=== PATIENT | male | born 1960 | race Caucasian/White ===

== ENCOUNTER 2019-01-30 07:58 | Day surgery (SDC) | payer OTHER ==
--- OUTSIDE RECORDS SUMMARY | 2019-01-30 08:02 | XMS REPORT ---
:1960 [facility] Address [address] [place] [address] [address] [place] [address] Care Team Providers Name Role Phone Unavailable Unavailable Unavailable Problems This patient has no known problems. Allergies, Adverse Reactions, Alerts This patient has no known allergies or adverse reactions. Medications This patient has no known medications.
[2019-01-30] MEDS ORDERED: Ringers Lactate 1,000 ML IV ONE (08:25)
[2019-01-30] MEDS ORDERED: CEFAZOLIN/SWI 1gm 1 GM/10 ML SYR ONE (08:26)
[2019-01-30 08:39] LABS: Absolute Lymphocytes (CBC) 1.2 K/uL (0.7-4.9); Basophils % 0.7 % (0-1.3); Lymphocytes % 9.2 % (15.3-44.8)
[2019-01-30 08:45] LABS: BUN Blood Urea Nitrogen 6 mg/dL (7-18); Bicarbonate 28 mmol/L (21-32); Glucose Level 102 mg/dL (74-106); Sodium Level 136 mmol/L (136-145)
--- NOTE | 2019-01-30 09:09 | RAD REPORT ---
EXAM DESCRIPTION: RAD - Chest Pa And Lat (2 Views) - 01/30/2019 8:27 am CLINICAL HISTORY: Preop chest, pending endoscopy and rectal abscess drainage COMPARISON: None. TECHNIQUE: PA and lateral views of the chest were obtained. FINDINGS: The lungs are hyperexpanded with flattened diaphragm and increased retrosternal space. A 1 0-12 mm nodule is present in the upper right lung field as well as focal parenchymal stranding. A lar yonathan area of irregular density and stranding seen in the left midlung field. By available history, the patient has no acute respiratory symptoms. In the absence of a prior study, the current chest findin gs could be chronic focal scarring changes or mass lesions. Bilateral apical scarring changes are pr esent. Focal stranding is seen in the lateral right upper lung field abutting the pleura. Heart size is normal and central vasculature is within normal limits. No pleural effusion or pneumo thorax seen. No acute bony finding noted. No aortic abnormality. Findings discussed with the referring physician 9:03 a.m. 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 Focal irregular parenchymal opacities in the upper right lung field and mid left lung field could be scarring or mass. Malignancy cannot be excluded. If the patient has no old outside imaging that can establish long-term stability of these findings, f ollow-up CT chest imaging would be recommended.
[2019-01-30] MEDS ORDERED: PROPOFOL 200 MG/20 ML VIAL IV ONE (09:16)
[2019-01-30] MEDS ORDERED: MIDAZOLAM HCL 2 MG/2 ML INJ ONE (09:17)
[2019-01-30] MEDS ORDERED: FENTANYL CITR 100 MCG/2 ML ONE ×2 (09:17→09:53)
[2019-01-30] MEDS ORDERED: LIDOCAINE 1% MPF 2 ML AMPULE ONE (09:18)
[2019-01-30] MEDS: HYDROMORPHONE HCL 1 MG/ML INJ ONE ×4 (10:34→10:55)
--- NOTE | 2019-01-30 11:35 | EKG ---
Test Date: 2019-01-30 Test Time: 08:16:23 Patch Setter: RUSSELL MEASUREMENT RESULTS: Intervals: Rate: 78 OH: 130 QRSD: 86 QT: 376 QTc: 428 [place]: P: 85 OH: 130 QRS: 88 T: 86 INTERPRETIVE STATEMENTS: Normal sinus rhythm Normal ECG No previous ECG available for comparison Electronically Signed On 01-30-19 11:34:22 CDT by Chris Lopez
--- NOTE | 2019-01-30 22:47 | OP ---
Date of Procedure: 01/30/2019 Surgeon: Kurt Díaz MD Preoperative Diagnosis: Right perirectal abscess. 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 Procedure Performed: Exam under anesthesia, rigid proctoscopy, incision and drainage and debridement of right perirectal abscess. Estimated Blood Loss: Minimal. Specimens: Pus. Finding: As above. Anesthesia: General. Complications: None. Disposition: Patient tolerated the procedure in stable condition, taken to Recovery in good general condition. Procedure In Detail: The patient was brought to the OR and placed in supine position. General anest hesia was begun. The patient was prepped and draped in usual sterile fashion in the lithotomy positi on. Exam under anesthesia revealed pus oozing from the inguinal canal and then and rigid proctoscopy confirmed in the posterior midline, there was a small opening, but there was very high fistula. On the right side of the anus, there was a large fluctuant mass. 4 cm incision was made. The pus under pressure evacuated. Loculation was broken up. Wound irrigated. Bleeding controlled with cautery. As this is a very high fistula, I decided to leave it alone. We will treat the abscess first and liset thomas can follow up with a colorectal surgeon as an outpatient. Subsequently, wet-to-dry normal sali ne dressing change was applied. The patient was awakened and taken to Recovery in good general condi tion. Discharge Note: Patient will go to Day Surgery, then home when stable. Disposition: Home. Condition: Stable. Discharge Instructions: Resume home medications and diet. Activity as tolerated. No heavy lifting. Cipro 500 mg p.o. q.12, hydrocodone 7.5 p.o. q.4 p.r.n. pain, wet-to-dry normal saline dressing wesley nges daily. Followup in my office in 2 weeks, call for appointment. We will get a CT of the chest i f needed. Based on the preop chest x-ray, there might be some scarring or mass in the left mid field and that was discussed with Dr. Bailey. /MODL Voice ID: [id number] Report ID: [id number]
== END 2019-01-30 12:20 | disposition home or self-care (01) ==
LOC: OR 07:58
PROVIDERS: ATTEND Surgery
PROC: 0D9P0ZX Drainage of Rectum, Open Approach, Diagnostic (ICD-10-PCS; principal; 2019-01-30 09:30)
DX: K61.1 Rectal abscess (principal); K60.3 Anal fistula; J44.9 Chronic obstructive pulmonary disease, unspecified; F17.200 Nicotine dependence, unspecified, uncomplicated; Z88.7 Allergy status to serum and vaccine
CPT/HCPCS: 93005; 87070; 85025; 80048; 36415; 87205; 87075; 87077; 87186; 71046; 46040; J2704; J2250; J3010 ×2; J2001; J1170 ×2; J0690